=== PATIENT | female | born 2000 | race Caucasian/White ===

== ENCOUNTER 2025-08-18 08:03 | Outpatient (CLI) | payer BC | END 2025-08-18 08:04 | disposition home or self-care (01) | LOC: CSHULT 08:03 | PROVIDERS: ATTEND Student in an Organized Health Care Education/Training Program | DX: R10.13 Epigastric pain (principal); R11.2 Nausea with vomiting, unspecified; R63.4 Abnormal weight loss; K82.4 Cholesterolosis of gallbladder | CPT/HCPCS: 76700 ==